=== PATIENT | male | born 1985 | race African-American/Black ===

== ENCOUNTER 2017-06-11 04:34 | Emergency (ER) | payer SELFPAY ==
[2017-06-11 04:41] VITALS: BP 145/97; PULSE 70; TEMP 98.5; BMI 56.9
--- NOTE | 2017-06-11 04:53 | PDOC ---
History of Present Illness - General Chief Complaint: Pain, Acute Stated Complaint: LEG PAIN Time Seen by Provider: 06/11/17 04:38 History Source: Patient Exam Limitations: No Limitations - History of Present Illness Initial Comments: 06/11/17 04:48 32-year-old male with no medical history presents to the emergency department complaining of 3/10 dull nonradiating intermittent left knee pain 1-1/2 years. The pain is exacerbated on touch and alleviated at rest. Patient states while sleeping this evening, he was laying on the left side with his knee in a awkward position. Patient denies extremity numbness or tingling sensation, fall , neck/back pains, bladder or bowel dysfunction. Patient states he's here in the emergency department with a cousin and decides she she gets seen as opposed to sitting in the waiting room. Patient states he's ambulating without any difficulties and can to deep knee bend without discomfort. Timing/Duration: other (x1.5 yrs) Past History - Past Medical History Allergies/Adverse Reactions: Allergies Allergy/AdvReac Type Severity Reaction Status Date / Time No Known Allergies Allergy Verified 06/11/17 04:38 Home Medications: Ambulatory Orders Cyclobenzaprine HCl [Flexeril] 5 mg PO TID #10 tablet 11/10/14 Naproxen [Naprosyn -] 500 mg PO BID #14 tablet 11/10/14 Asthma: Yes HTN: Yes - Suicide/Smoking/Psychosocial Hx Smoking History: Unknown if ever smoked Have you smoked in the past 12 months: No Number of Cigarettes Smoked Daily: 10 Information on smoking cessation initiated: No Hx Alcohol Use: No Drug/Substance Use Hx: No Substance Use Type: Alcohol Review of Systems - Review of Systems Able to Perform ROS?: Yes Comments:: 06/11/17 04:53 CONSTITUTIONAL: Absent: fever, chills, diaphoresis, generalized weakness, malaise, loss of appetite HEENT: Absent: rhinorrhea, nasal congestion, throat pain, throat swelling, difficulty swallowing, mouth swelling, ear pain, eye pain, visual Changes CARDIOVASCULAR: Absent: chest pain, loss of consciousness, palpitations, irregular heart rate, peripheral edema RESPIRATORY: Absent: cough, shortness of breath, dyspnea with exertion, orthopnea, wheezing, stridor, hemoptysis GASTROINTESTINAL: Absent: abdominal pain, abdominal distension, nausea, vomiting, diarrhea, constipation, melena, hematochezia GENITOURINARY: Absent: dysuria, frequency, urgency, hesitancy, hematuria, flank pain, genital pain MUSCULOSKELETAL: +left knee pain Absent: myalgia, arthralgia, joint swelling SKIN: Absent: rash, itching, pallor HEMATOLOGIC/IMMUNOLOGIC: Absent: easy bleeding, easy bruising, lymphadenopathy, frequent infections ENDOCRINE: Absent: unexplained weight gain, unexplained weight loss, heat intolerance, cold intolerance NEUROLOGIC: Absent: headache, focal weakness or paresthesias, dizziness, unsteady gait, seizure, mental status changes, bladder or bowel incontinence Is the patient limited Khmer proficient: No *Physical Exam - Vital Signs Last Vital Signs Temp Pulse Resp BP Pulse Ox 98.5 F 70 14 145/97 70 L 06/11/17 04:38 06/11/17 04:38 06/11/17 04:38 06/11/17 04:38 06/11/17 04:38 - Physical Exam Comments: 06/11/17 04:53 GENERAL: Well developed, well nourished. Awake and alert. No acute distress. HEENT: Normocephalic, atraumatic. PERRLA, EOMI. No conjunctival pallor. Sclera are non- icteric. Moist mucous membranes. Oropharynx is clear. NECK: Supple. Full ROM. No JVD. Carotid pulses 2+ and symmetric, without bruits. No thyromegaly. No lymphadenopathy. CARDIOVASCULAR: Regular rate and rhythm. No murmurs, rubs, or gallops. Distal pulses are 2+ and symmetric. PULMONARY: No evidence of respiratory distress. Lungs clear to auscultation bilaterally. No wheezing, rales or rhonchi. ABDOMINAL: Soft. Non-tender. Non-distended. No rebound or guarding. No organomegaly. Normoactive bowel sounds. MUSCULOSKELETAL Normal range of motion at all joints. No bony deformities or tenderness. No CVA tenderness. EXTREMITIES: No cyanosis. No clubbing. No edema. No calf tenderness. SKIN: Warm and dry. Normal capillary refill. No rashes. No jaundice. Left knee F.R.O.M. neg swelling Neg obv deformities +pain on palp Neg ant/posterior drawer Neg valrus/valgus Neg ant midline tenderness on palp \ Left hip F.R.O.M. Neg pain on palp Left ankle 2+dp pulse neg obv def neg pain on palp *DC/Admit/Observation/Transfer Diagnosis at time of Disposition: Chronic knee pain Qualifiers: Laterality: left Qualified Code(s): M25.562 - Pain in left knee - Discharge Dispostion Admit: No - Referrals Referrals: Abisai Echavarria MD [Staff Physician] - - Patient Instructions Printed Discharge Instructions: DI for Knee Pain Additional Instructions: Rest Tylenol alternating with motrin as needed for pain Return to the ER for sevree/persistent/worsening symptoms - Post Discharge Activity
--- NOTE | 2017-06-11 05:10 | PDOC ---
*Physical Exam - Vital Signs Last Vital Signs Temp Pulse Resp BP Pulse Ox 98.5 F 70 14 145/97 70 L 06/11/17 04:38 06/11/17 04:38 06/11/17 04:38 06/11/17 04:38 06/11/17 04:38 Medical Decision Making - Medical Decision Making 06/11/17 05:10 Pt seen by the Advanced Practice Provider under my direct supervision Ancillary studies reviewed I agree with plan as outlined by the Advanced Practice Provider ELIZABETH Maya *DC/Admit/Observation/Transfer Diagnosis at time of Disposition: Chronic knee pain Qualifiers: Laterality: left Qualified Code(s): M25.562 - Pain in left knee - Referrals Referrals: Abisai Echavarria MD [Staff Physician] - - Patient Instructions Printed Discharge Instructions: DI for Knee Pain Additional Instructions: Rest Tylenol alternating with motrin as needed for pain Return to the ER for sevree/persistent/worsening symptoms - Post Discharge Activity
== END 2017-06-11 05:39 | disposition home or self-care (01) ==
LOC: JER 04:34
DX: M25.562 Pain in left knee (principal); G89.29 Other chronic pain
CPT/HCPCS: 99282-25

== ENCOUNTER 2017-06-22 05:15 | Emergency (ER) | payer SELFPAY ==
[2017-06-22 05:24] VITALS: BP 140/83; PULSE 70; TEMP 98.3; BMI 30.1
[2017-06-22] MEDS ORDERED: IBUPROFEN 400 MG TABLET (FP) PO ONE ×2 (05:36→05:42)
[2017-06-22] MEDS ORDERED: RANITIDINE HCL 150 MG TABLET (FP) PO ONE (05:37)
[2017-06-22] MEDS ORDERED: RANITIDINE HCL 150 MG TABLET (FP) ONE (05:42)
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
== END 2017-06-22 07:19 | disposition home or self-care (01) ==
LOC: JER 05:15
DX: M79.605 Pain in left leg (principal); W01.0XXA Fall on same level from slipping, tripping and stumbling without subsequent striking against object, initial encounter; Y93.89 Activity, other specified; Y92.89 Other specified places as the place of occurrence of the external cause; Y99.8 Other external cause status
CPT/HCPCS: 73523-TC-FY; 73560-TC-LT-FY; 73590-TC-LT-FY; 99282-25

== ENCOUNTER 2018-02-12 17:25 | Emergency (ER) | payer OTHER ==
[2018-02-12 17:41] VITALS: BP 140/80; PULSE 74; TEMP 98.7; BMI 25.8
[2018-02-12] MEDS ORDERED: diazePAM 5 MG TABLET PO ONE (18:11)
[2018-02-12] MEDS ORDERED: KETOROLAC TROMETHAMINE 60 MG/2 ML VIAL IM ONE (18:11)
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
[2018-02-12] MEDS ORDERED: diazePAM 5 MG TABLET ONE (18:33)
[2018-02-12] MEDS ORDERED: KETOROLAC TROMETHAMINE 60 MG/2 ML VIAL ONE (18:33)
== END 2018-02-12 19:16 | disposition home or self-care (01) ==
LOC: JERFT 17:25
PROC: 3E0233Z Introduction of Anti-inflammatory into Muscle, Percutaneous Approach (ICD-10-PCS; principal; 2018-02-12)
DX: M54.42 Lumbago with sciatica, left side (principal); M62.830 Muscle spasm of back; M41.80 Other forms of scoliosis, site unspecified
CPT/HCPCS: 72100-TC-FY; 96372; 99281-25

== ENCOUNTER 2018-02-14 20:42 | Emergency (ER) | payer OTHER ==
--- NOTE | 2018-02-14 21:30 | PDOC ---
Rapid Medical Evaluation Time Seen by Provider: 02/14/18 21:29 Medical Evaluation: Allergies Allergy/AdvReac Type Severity Reaction Status Date / Time No Known Allergies Allergy Verified 02/12/18 17:41 02/14/18 21:30 The patient presents with a chief complaint of: back/leg pain I have performed a brief in-person evaluation of this patient. Pertinent physical exam findings: vss, I have ordered the following: provider to determine, seen here for same 2 days ago The patient will proceed to the ED for further evaluation. 02/14/18 21:32
[2018-02-14 21:35] VITALS: BP 137/78; PULSE 71; TEMP 98.7; BMI 28.4
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
== END 2018-02-14 22:56 | disposition home or self-care (01) ==
LOC: JERFT 20:42
DX: M54.16 Radiculopathy, lumbar region (principal); F17.210 Nicotine dependence, cigarettes, uncomplicated; I10 Essential (primary) hypertension; J45.909 Unspecified asthma, uncomplicated
CPT/HCPCS: 99281-25

== ENCOUNTER 2018-02-15 08:34 | Observation (INO) | payer OTHER ==
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
--- NOTE | 2018-02-15 14:22 | CON.NEURO ---
Consult Consult Specialty:: Dominique Referred by:: Dr Davila - History of Present Illness History of Present Illness: this is a 32-year-old right-handed -Honduran man with history of HIV according to him I saw him in the emergency room with chief complaint of difficulty walking and back pain. Patient has been in the emergency room for over 24 hours according to him. When I interviewed the patient in the emergency room he was on a wheelchair demanding food. Patient did not look distressed because of back pain patient claims when he stands he can walk patient claims that he was planning to go home but he couldn't stand on his feet as his feet felt weak. No report of any recent travel no fever patient describes back pain only upon standing. Patient denies any urinary incontinence. Patient claims that he try to go see an orthopedic surgeon. When interviewed the patient regarding the HIV history he says that he follows up with infectious disease specialist/HIV clinic in [place] on [facility]. Patient claims that the HIV is under control. - History Source History Provided By: Patient, Medical Record Limitations to Obtaining History: Clinical Condition - Alcohol/Substance Use Hx Alcohol Use: No - Smoking History Smoking history: Never smoked Have you smoked in the past 12 months: No Aproximately how many cigarettes per day: 3 Home Medications - Allergies Allergies/Adverse Reactions: Allergies Allergy/AdvReac Type Severity Reaction Status Date / Time No Known Allergies Allergy Verified 02/15/18 09:06 - Home Medications Home Medications: Ambulatory Orders NK [No Known Home Medication] 02/15/18 Family Disease History - Family Disease History Family History: Unable to Obtain Review of Systems - Review of Systems Musculoskeletal: reports: Back Pain, Joint Pain, Muscle Weakness Physical Exam-Neuro Vital Signs: Vital Signs Temperature 97.5 F L 02/15/18 09:04 Pulse Rate 61 02/15/18 09:04 Respiratory Rate 18 02/15/18 09:04 Blood Pressure 129/84 02/15/18 09:04 O2 Sat by Pulse Oximetry (%) 98 02/15/18 09:04 Constitutional: Yes: Well Nourished Neck: Yes: WNL Cardiovascular: Yes: WNL - Neuro Exam Level Of Consciousness: Yes: Oriented to Person, Oriented to Place, Oriented to Time Eyes: Yes: PERRLA Speech: WNL Dominant Hand: Right Cranial Nerves II-XII Intact: Yes Gag: Present DTR's: 1+ Left Bicep, 1+ Right Bicep, 1+ Left Brachioradialis, 1+ Right Brachioradialis Response to light touch: Normal Response to pain prick: Normal Response to temperature: Normal Motor Strength: 35: Left Arm, Right Arm, Left Leg, Right Leg Gait: Other (I was able to stand the patient up patient was able to get up from a seated position patient was very hesitant to walk) Imaging - Results X-ray: Image Reviewed Problem List - Problems (1) Low back pain Assessment/Plan: initially when I started interviewing the patient seeing the patient for the back pain patient was comfortable and I was planning to discharge the patient until he told me that he has a history of HIV! We do not have any documentation or paperwork regarding this diagnosis for the patient. Patient with no clinical diagnosis of demyelinating disease although HIV can present with a very awkward presentation I asked the emergency room physician Dr. Davila to obtain a CAT scan of the lumbosacral spine. 1. fall precautions. 2. One trial of 30 mg Toradol. 3. CAT scan of the lumbosacral spine rule out a plexus lesion versus lumbar radiculopathy. 4. Suggest physical therapy to evaluate the patient and emergency room. 5. Questionable need for NCV Case was discussed with the emergency room physician Dr. Onofre thank you very much for the kind referral Code(s): M54.5 - LOW BACK PAIN
[2018-02-15] MEDS ORDERED: KETOROLAC TROMETHAMINE 30 MG/1 ML VIAL IM ONE (14:49)
[2018-02-15] MEDS ORDERED: KETOROLAC TROMETHAMINE 30 MG/1 ML VIAL ONE (15:32)
--- NOTE | 2018-02-15 17:13 | CONSULT ---
Consult - text type - Consultation Consultation Note: NEUROSURGERY CONSULTATION Fuentes Coughlin is a 32 year old male who has been healthy other than HIV which he is diligent in managing. 3 months ago, his family and friends noted that he would tend to lean to one side. Although he did not initially appreciate this, it continued and progressed over 1 month. He was exercising regularly, including lifting weights and developed back pain. He saw himself in the mirror at the gym and realized that he was leaning to the side. He has had 2 -3 cortisone injections for his back pain, but has not had MARTHA or formal Physical Therapy. He recently noted significant increase in his back pain and difficulty walking upright. He felt that he needed to walk bent over "like an old man." He came to the ER at [facility] and plain films of the Lumbar spine were generally unremarkable except for slight leaning on AP imaging. The patient was discharged with plans for outpatient followup, however , could not stand straight to walk out and decided to return for further evaluation. The patient has been in the ER overnight and today CT was performed which suggests L34 disc bulging with Lumbar stenosis from hypertrophic ligamentum flavum and facets. It is difficult to window the images adequately to determine the extent of the stenosis or size of the disc (which has a partially calcified annulus). The patient has significant increase in his pain with Valsalva's maneuver and gets substantial aggravation from vibration and jostling. I explained that appropriate treatment could range from observation, Physical Therapy, MARTHA, Medrol dosepack, Lumbar discectomy and possibly Lumbar discectomy and fusion. I explained that given his young age and relatively short duration of symptoms, it would be preferred to strive for a non-invasive treatment plan. I feel that MRI would be useful in his evaluation. The patient agrees with this assessment and is willing to undergo MRI. I will review the MRI once completed and will coordinate with Dr. Fox and the ER team to develop a plan of care.
[2018-02-16 00:35] LABS: BASO % 0.5 % (0-2.0); EOS % 1.5 % (0-4.5); HEMATOCRIT 41.1 % (35.4-49); HEMOGLOBIN 13.9 GM/dL (11.7-16.9); LYMPH % 30.3 % (8-40); MCH 31.8 pg (25.7-33.7); MCHC 33.7 g/dl (32.0-35.9); MEAN CELL VOLUME 94.4 fl (80-96); MEAN PLT VOLUME 9.6 fl (7.5-11.1); MONO % 10.9 % (3.8-10.2); NEUT % 56.8 % (42.8-82.8); PLATELET COUNT 133 K/MM3 (134-434); RBC 4.36 M/mm3 (4.00-5.60); RDW 13.2 % (11.9-15.9); WHITE BLOOD COUNT 5.3 K/mm3 (4.0-10.0)
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
[2018-02-16 01:00] LABS: ALBUMIN 3.8 g/dl (3.4-5.0); ALK PHOS 69 U/L (45-117); ANION GAP 6 MMOL/L (8-16); BILIRUBIN,TOTAL 0.3 mg/dL (0.2-1); BLOOD UREA NITROGEN 20 mg/dL (7-18); CALCIUM 9.2 mg/dL (8.5-10.1); CHLORIDE 106 mmol/L (98-107); CO2 28 mmol/L (21-32); CREATININE 1.1 mg/dL (0.55-1.3); GLUCOSE,RANDOM 90 mg/dL (74-106); POTASSIUM 4.2 mmol/L (3.5-5.1); SGOT/AST 15 U/L (15-37); SGPT/ALT 23 U/L (13-61); SODIUM 139 mmol/L (136-145); TOT PROT 7.3 g/dl (6.4-8.2)
--- NOTE | 2018-02-16 01:10 | PN ---
Teaching Attending Note Name of Resident: Donn Bell ATTENDING PHYSICIAN STATEMENT I saw and evaluated the patient. I reviewed the resident's note and discussed the case with the resident. I agree with the resident's findings and plan as documented. SUBJECTIVE: This is a 32 year old man with a history of HIV who comes to the ED complaining of low back pain radiating down both legs. He has been unable to walk secondary to pain and has been falling. He has noted that he has been leaning to the right. He denies incontinence of bladder/bowel. He has been having symptoms for about 1 year, but has been worsening over the last 4 days. This is his 3rd ED visit in 4 days. OBJECTIVE: Vital Signs Period Temp Pulse Resp BP Sys/Zamora Pulse Ox Last 24 Hr 97.5 F-97.8 F 61-63 18-18 115-129/74-84 98-100 HEART: S1S2, RRR LUNGS: Clear ABDOMEN: Soft, non-tender, non-distended, normal BS EXTREMITIES: No edema Laboratory Tests 02/16/18 02/16/18 00:10 00:10 WBC 5.3 RBC 4.36 Hgb 13.9 Hct 41.1 MCV 94.4 MCH 31.8 MCHC 33.7 RDW 13.2 Plt Count 133 L MPV 9.6 Absolute Neuts (auto) 3.0 Neutrophils % 56.8 Lymphocytes % 30.3 Monocytes % 10.9 H Eosinophils % 1.5 Basophils % 0.5 Nucleated RBC % 0 Sodium 139 Potassium 4.2 Chloride 106 Carbon Dioxide 28 Anion Gap 6 L BUN 20 H Creatinine 1.1 Creat Clearance w eGFR > 60 Random Glucose 90 Calcium 9.2 Total Bilirubin 0.3 AST 15 ALT 23 Alkaline Phosphatase 69 Total Protein 7.3 Albumin 3.8 Home Medications Medication Instructions Recorded NK [No Known Home Medication] 02/15/18 ASSESSMENT AND PLAN: This is a 32 year old man with a history of HIV who presented to the ED with low back pain radiating down both legs. 1. Low back pain radiating down both legs with difficulty ambulating - CT of pelvis shows right femoral head osteonecrosis - No history of trauma, steroid use, alcohol use, sickle cell disease - ? secondary to HIV - Ortho consult - CT of L-spine shows marked central canal stenosis and moderte to marked bilateral subarticular canal/lateral recess stenosis at L3-L4 - Neurology, neurosurgery consults appreciated - MRI of L-spine pending - Physical therapy - Pain control - Further management based on MRI findings 2. HIV - Patient states that he is compliant with ART
[2018-02-16] MEDS: HEPARIN NA (PORCINE) 5,000 UNITS/ML 1ML VIAL SQ SCH ×4 (06:14→21:00)
[2018-02-16] MEDS ORDERED: HEPARIN NA (PORCINE) 5,000 UNITS/ML 1ML VIAL ONE (06:29)
[2018-02-16 07:12] LABS: BASO % 0.6 % (0-2.0); EOS % 1.7 % (0-4.5); HEMATOCRIT 40.6 % (35.4-49); HEMOGLOBIN 13.6 GM/dL (11.7-16.9); LYMPH % 34.2 % (8-40); MCH 31.3 pg (25.7-33.7); MCHC 33.5 g/dl (32.0-35.9); MEAN CELL VOLUME 93.4 fl (80-96); MEAN PLT VOLUME 9.8 fl (7.5-11.1); MONO % 13.5 % (3.8-10.2); PLATELET COUNT 125 K/MM3 (134-434); RBC 4.35 M/mm3 (4.00-5.60); WHITE BLOOD COUNT 4.2 K/mm3 (4.0-10.0)
[2018-02-16 07:41] LABS: INR 1.03 (0.83-1.09); PROTHROMBIN TIME (PATIENT) 12.1 SEC (9.7-13.0)
[2018-02-16 08:16] LABS: ANION GAP 6 MMOL/L (8-16); BLOOD UREA NITROGEN 17 mg/dL (7-18); CALCIUM 8.8 mg/dL (8.5-10.1); CHLORIDE 107 mmol/L (98-107); CO2 27 mmol/L (21-32); GLUCOSE,RANDOM 90 mg/dL (74-106); MAGNESIUM 2.2 mg/dL (1.8-2.4); PHOSPHOROUS 4.8 mg/dL (2.5-4.9); SODIUM 140 mmol/L (136-145)
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
--- NOTE | 2018-02-16 12:12 | PN ---
Progress Note (short form) - Note Progress Note: Patient resting comfortably in bed. When awakened, he reports adequate pain control. Discussed MRI findings and role of surgery (L34 discectomy versus discectomy & fusion) if MARTHA is not able to relieve his pain. -MARTHA -Will consider potential for surgery if MARTHA fails -GI/DVT prophylaxis
--- NOTE | 2018-02-16 14:28 | SPA.PREOP ---
- PRE-OP NOTE Dx: L34 disc herniation with Lumbar stenosis Planned Procedure: L34 discectomy versus discectomy & fusion Surgeon: Dr Naveen Rose Consent: Obtained after surgeon explained all risks, benefits and alternatives. Opportunity for questions. Patient had none. Understood and signed without reservation. Last Vital Signs Temp Pulse Resp BP Pulse Ox 98.0 F 64 18 102/61 99 02/16/18 08:45 02/16/18 08:45 02/16/18 08:45 02/16/18 08:45 02/16/18 09:45 Lab Results WBC 4.2 K/mm3 (4.0-10.0) 02/16/18 06:00 RBC 4.35 M/mm3 (4.00-5.60) 02/16/18 06:00 Hgb 13.6 GM/dL (11.7-16.9) 02/16/18 06:00 Hct 40.6 % (35.4-49) 02/16/18 06:00 MCV 93.4 fl (80-96) 02/16/18 06:00 MCHC 33.5 g/dl (32.0-35.9) 02/16/18 06:00 RDW 13.0 % (11.9-15.9) 02/16/18 06:00 Plt Count 125 K/MM3 (134-434) L 02/16/18 06:00 Sodium 140 mmol/L (136-145) 02/16/18 06:00 Potassium 4.0 mmol/L (3.5-5.1) 02/16/18 06:00 Chloride 107 mmol/L (98-107) 02/16/18 06:00 Carbon Dioxide 27 mmol/L (21-32) 02/16/18 06:00 Anion Gap 6 MMOL/L (8-16) L 02/16/18 06:00 BUN 17 mg/dL (7-18) 02/16/18 06:00 Creatinine 1.0 mg/dL (0.55-1.3) 02/16/18 06:00 Random Glucose 90 mg/dL (74-106) 02/16/18 06:00 Calcium 8.8 mg/dL (8.5-10.1) 02/16/18 06:00 INR 1.03 (0.83-1.09) 02/16/18 06:00 P: Possible OR 02/[address] Rose weiss tonight Medical clearance NPO after midnight CBC, chem, coags, t&s tonight Consent per attending - ASSESSMENT/PLAN 1. Make NPO after midnight except po meds 2. GI/DVT PPX 3. Medical optimization / clearance
--- NOTE | 2018-02-16 15:35 | PN ---
Physical Exam: SUBJECTIVE: Patient seen and examined at bedside this morning. He admits pain originating from left sided-lumbar spine radiating interiorly along his left leg. He admits walking stooped forward with a hunch, and that pain is exacerbated standing upright. Endorses that he has been walking with a cane due to pain. Denies fevers, chills, shortness of breath, chest pain, palpitations, abdominal pain, nausea, vomiting. OBJECTIVE: Vital Signs Temperature 98.0 F 02/16/18 08:45 Pulse Rate 64 02/16/18 08:45 Respiratory Rate 18 02/16/18 08:45 Blood Pressure 102/61 02/16/18 08:45 O2 Sat by Pulse Oximetry (%) 99 02/16/18 09:45 GENERAL: The patient is awake, alert, and fully oriented, in no acute distress. HEAD: Normal with no signs of trauma. EYES: PERRLA, extraocular movements intact, sclera anicteric, conjunctiva clear b/l. ENT: Oropharynx clear without exudates, moist mucous membranes. NECK: Supple without lymphadenopathy LUNGS: Breath sounds equal, clear to auscultation bilaterally, no wheezes, no crackles. No accessory muscle use. HEART: Regular rate and rhythm, S1, S2 without murmur, rub or gallop. ABDOMEN: Soft, nontender, nondistended, normoactive bowel sounds, no guarding, no rebound, no hepatosplenomegaly. EXTREMITIES: 2+ radial and dorsalis pedis pulses b/l. Warm. NEUROLOGICAL: Cranial nerves II through XII grossly intact. Strength 4/5 b/l lower extremities in hip flexion, extension, knee flexion, extension, and dorsiflexion, plantarflexion. Strength 5/5 b/l upper extremities in flexion, extension, abduction, adduction. PSYCH: Normal mood, normal affect upon my encounter this morning. SKIN: Warm, dry. Laboratory Results - last 24 hr 02/16/18 02/16/18 02/16/18 00:10 00:10 06:00 WBC 5.3 4.2 RBC 4.36 4.35 Hgb 13.9 13.6 Hct 41.1 40.6 MCV 94.4 93.4 MCH 31.8 31.3 MCHC 33.7 33.5 RDW 13.2 13.0 Plt Count 133 L 125 L MPV 9.6 9.8 Absolute Neuts (auto) 3.0 2.1 Neutrophils % 56.8 50.0 Lymphocytes % 30.3 34.2 Monocytes % 10.9 H 13.5 H Eosinophils % 1.5 1.7 Basophils % 0.5 0.6 Nucleated RBC % 0 0 PT with INR INR PTT (Actin FS) Sodium 139 Potassium 4.2 Chloride 106 Carbon Dioxide 28 Anion Gap 6 L BUN 20 H Creatinine 1.1 Creat Clearance w eGFR > 60 Random Glucose 90 Calcium 9.2 Phosphorus Magnesium Total Bilirubin 0.3 AST 15 ALT 23 Alkaline Phosphatase 69 Total Protein 7.3 Albumin 3.8 Active Medications Generic Name Dose Route Start Last Admin Trade Name Freq PRN Reason Stop Dose Admin Chlorhexidine Gluconate 1 applic 02/16/18 22:00 Hibiclens For Decolonization - TP HS ALEJANDRO Heparin Sodium (Porcine) 5,000 unit 02/16/18 06:00 02/16/18 06:14 Heparin - SQ 5,000 unit TID ALEJANDRO Administration ASSESSMENT/PLAN: Patient is a 32 year old male with history of scoliosis and HIV presents with lower back pain. Lumbar back pain -Likely secondary to L3-L4 bulging disk, and spinal stenosis noted in CT lumbar spine. Denies history of trauma. -MRI lumbar spine shows L3-L4 disc desiccation. Remodelling with sclerosis of L3 vertebral body. Likely chronic apophyseal ring avulsion injury, disc herniation. -Neurosurgery (Dr. Morrison) consult appreciated: Will attempt palliation of symptoms with Epidural Spinal Injection Will consider potential L34 discectomy vs. discectomy and fusion if MARTHA does not alleviate his symptoms F/U pain management consult Dr. Chilel for MARTHA Right femoral head osteonecrosis -CT of pelvis noted osteonecrosis right femoral head -Orthopedic surgery consult (Dr. Alejandra) appreciated: Likely early stage avascular necrosis. Will F/U xray right hip Patient will follow up as outpatient for further studies HIV -Patient admits compliance with Genvoya at home, however unavailable at this hospital. -Discussed with patient who is unable have family member or friend to bring the medication from home. -ID is on the case. HIV medications per ID. FEN -No IV fluids -Will follow CMP -Regular diet. NPO after midnight for possible procedure with Dr. Morrison tomorrow. Prophylaxis -Heparin 5000u subq TID Disposition -Continue care in medical surgical floor. Visit type - Emergency Visit Emergency Visit: Yes ED Registration Date: 02/15/18 Care time: The patient presented to the Emergency Department on the above date and was hospitalized for further evaluation of their emergent condition. - New Patient This patient is new to me today: Yes Date on this admission: 02/16/18 - Critical Care Critical Care patient: No - Discharge Referral Referred to [facility] Med P.C.: No
[2018-02-16] MEDS ORDERED: ACETAMINOPHEN 325 MG TABLET (FP) PO PRN (16:33)
[2018-02-16 19:52] VITALS: TEMP 98.4; BMI 28.5
--- NOTE | 2018-02-16 21:19 | PN ---
Teaching Attending Note Name of Resident: Vamsi Perkins ATTENDING PHYSICIAN STATEMENT I saw and evaluated the patient. I reviewed the resident's note and discussed the case with the resident. I agree with the resident's findings and plan as documented. SUBJECTIVE: Patient is comfortable with no acute distress. OBJECTIVE: Vital Signs Temperature 98.4 F 02/16/18 19:43 Pulse Rate 80 02/16/18 19:43 Respiratory Rate 20 02/16/18 20:01 Blood Pressure 135/74 02/16/18 19:43 O2 Sat by Pulse Oximetry (%) 98 02/16/18 20:01 GENERAL: The patient is awake, alert, and fully oriented, in no acute distress. HEAD: Normal with no signs of trauma. EYES: PERRLA, extraocular movements intact, sclera anicteric, conjunctiva clear b/l. ENT: Oropharynx clear without exudates, moist mucous membranes. NECK: Supple without lymphadenopathy LUNGS: Breath sounds equal, clear to auscultation bilaterally, no wheezes, no crackles. No accessory muscle use. HEART: Regular rate and rhythm, S1, S2 without murmur, rub or gallop. ABDOMEN: Soft, nontender, nondistended, normoactive bowel sounds, no guarding, no rebound, no hepatosplenomegaly. EXTREMITIES: 2+ radial and dorsalis pedis pulses b/l. Warm. NEUROLOGICAL: Cranial nerves II through XII grossly intact. SKIN: Warm, dry. CBCD WBC 4.2 K/mm3 (4.0-10.0) 02/16/18 06:00 RBC 4.35 M/mm3 (4.00-5.60) 02/16/18 06:00 Hgb 13.6 GM/dL (11.7-16.9) 02/16/18 06:00 Hct 40.6 % (35.4-49) 02/16/18 06:00 MCV 93.4 fl (80-96) 02/16/18 06:00 MCHC 33.5 g/dl (32.0-35.9) 02/16/18 06:00 RDW 13.0 % (11.9-15.9) 02/16/18 06:00 Plt Count 125 K/MM3 (134-434) L 02/16/18 06:00 MPV 9.8 fl (7.5-11.1) 02/16/18 06:00 CMP Sodium 140 mmol/L (136-145) 02/16/18 06:00 Potassium 4.0 mmol/L (3.5-5.1) 02/16/18 06:00 Chloride 107 mmol/L (98-107) 02/16/18 06:00 Carbon Dioxide 27 mmol/L (21-32) 02/16/18 06:00 Anion Gap 6 MMOL/L (8-16) L 02/16/18 06:00 BUN 17 mg/dL (7-18) 02/16/18 06:00 Creatinine 1.0 mg/dL (0.55-1.3) 02/16/18 06:00 Creat Clearance w eGFR > 60 (>60) 02/16/18 06:00 Random Glucose 90 mg/dL (74-106) 02/16/18 06:00 Calcium 8.8 mg/dL (8.5-10.1) 02/16/18 06:00 Total Bilirubin 0.3 mg/dL (0.2-1) 02/16/18 00:10 AST 15 U/L (15-37) 02/16/18 00:10 ALT 23 U/L (13-61) 02/16/18 00:10 Alkaline Phosphatase 69 U/L (45-117) 02/16/18 00:10 Total Protein 7.3 g/dl (6.4-8.2) 02/16/18 00:10 Albumin 3.8 g/dl (3.4-5.0) 02/16/18 00:10 Current Medications Generic Name Dose Route Start Last Admin Trade Name Ck PRN Reason Stop Dose Admin Acetaminophen 650 mg 02/16/18 16:33 02/16/18 20:57 Tylenol - PO 650 mg Q6H PRN Administration Fever Or Pain Chlorhexidine Gluconate 1 applic 02/16/18 22:00 Hibiclens For Decolonization - TP HS ALEJANDRO Heparin Sodium (Porcine) 5,000 unit 02/16/18 06:00 02/16/18 21:00 Heparin - SQ 5,000 unit TID ALEJANDRO Administration Home Medications Medication Instructions Recorded NK [No Known Home Medication] 02/15/18 ASSESSMENT AND PLAN: Patient is a 32 year old male with history of scoliosis and HIV presents with lower back pain. # Lumbar back pain Likely secondary to L3-L4 bulging disk, and spinal stenosis noted in CT lumbar spine. # Right femoral head osteonecrosis: CT of pelvis noted osteonecrosis right femoral head, Orthopedic surgery consult (Dr. Alejadnra) # HIV. ID on the case. DVT Px: Heparin 5000u subq TID
[2018-02-16] MEDS ORDERED: CHLORHEXIDINE GLUCONATE 4% CLEANSER FOR DECOLONIZATION TP SCH (22:00)
[2018-02-17] MEDS: HEPARIN NA (PORCINE) 5,000 UNITS/ML 1ML VIAL SQ SCH (05:58)
[2018-02-17 07:09] LABS: HEMATOCRIT 40.7 % (35.4-49); HEMOGLOBIN 13.9 GM/dL (11.7-16.9); MCH 31.8 pg (25.7-33.7); MCHC 34.1 g/dl (32.0-35.9); MEAN CELL VOLUME 93.4 fl (80-96); MEAN PLT VOLUME 10.3 fl (7.5-11.1); PLATELET COUNT 119 K/MM3 (134-434); RBC 4.36 M/mm3 (4.00-5.60); RDW 12.9 % (11.9-15.9)
[2018-02-17 07:43] LABS: ALBUMIN 3.5 g/dl (3.4-5.0); ALK PHOS 73 U/L (45-117); ANION GAP 5 MMOL/L (8-16); BILIRUBIN,TOTAL 0.2 mg/dL (0.2-1); BLOOD UREA NITROGEN 17 mg/dL (7-18); CALCIUM 9.2 mg/dL (8.5-10.1); CHLORIDE 107 mmol/L (98-107); CO2 28 mmol/L (21-32); GLUCOSE,RANDOM 108 mg/dL (74-106); PHOSPHOROUS 4.9 mg/dL (2.5-4.9); POTASSIUM 3.9 mmol/L (3.5-5.1); SGOT/AST 18 U/L (15-37); SGPT/ALT 26 U/L (13-61); SODIUM 140 mmol/L (136-145); TOT PROT 6.9 g/dl (6.4-8.2)
[2018-02-17 07:57] LABS: INR 1.05 (0.83-1.09); PROTHROMBIN TIME (PATIENT) 12.4 SEC (9.7-13.0)
[2018-02-17 07:59] LABS: ACTIVATED PTT 28.1 SECONDS (25.2-36.5)
--- NOTE | 2018-02-17 08:31 | PN ---
Progress Note (short form) - Note Progress Note: patient refused ID consult- please call back if needed
--- NOTE | 2018-02-17 10:22 | DS ---
Physical Exam: SUBJECTIVE: Patient seen and examined at bedside this morning. No overnight events. He still endorses pain originating from left sided-lumbar spine radiating interiorly along his left leg. OBJECTIVE: Vital Signs Period Temp Pulse Resp BP Sys/Zamora Pulse Ox Last 24 Hr 98.0 F-98.4 F 80-83 18-20 135-135/74-91 98-98 PHYSICAL EXAM GENERAL: The patient is awake, alert, and fully oriented, in no acute distress. HEAD: Normal with no signs of trauma. EYES: PERRLA, extraocular movements intact, sclera anicteric, conjunctiva clear b/l. ENT: Oropharynx clear without exudates, moist mucous membranes. NECK: Supple without lymphadenopathy LUNGS: Breath sounds equal, clear to auscultation bilaterally, no wheezes, no crackles. No accessory muscle use. HEART: Regular rate and rhythm, S1, S2 without murmur, rub or gallop. ABDOMEN: Soft, nontender, nondistended, normoactive bowel sounds, no guarding, no rebound, no hepatosplenomegaly. EXTREMITIES: 2+ radial and dorsalis pedis pulses b/l. Warm. NEUROLOGICAL: Cranial nerves II through XII grossly intact. Strength 4/5 b/l lower extremities in hip flexion, extension, knee flexion, extension, and dorsiflexion, plantarflexion. Strength 5/5 b/l upper extremities in flexion, extension, abduction, adduction. PSYCH: Normal mood, normal affect upon my encounter this morning. SKIN: Warm, dry. LABS Laboratory Results - last 24 hr 02/17/18 02/17/18 02/17/18 06:23 06:23 06:23 WBC 5.0 RBC 4.36 Hgb 13.9 Hct 40.7 MCV 93.4 MCH 31.8 MCHC 34.1 RDW 12.9 Plt Count 119 L MPV 10.3 PT with INR 12.40 INR 1.05 PTT (Actin FS) 28.1 Sodium 140 Potassium 3.9 Chloride 107 Carbon Dioxide 28 Anion Gap 5 L BUN 17 Creatinine 1.0 Creat Clearance w eGFR > 60 Random Glucose 108 H Calcium 9.2 Phosphorus 4.9 Magnesium 2.0 Total Bilirubin 0.2 AST 18 ALT 26 Alkaline Phosphatase 73 Total Protein 6.9 Albumin 3.5 Blood Type Antibody Screen 02/17/18 06:23 WBC RBC Hgb Hct MCV MCH MCHC RDW Plt Count MPV PT with INR INR PTT (Actin FS) Sodium Potassium Chloride Carbon Dioxide Anion Gap BUN Creatinine Creat Clearance w eGFR Random Glucose Calcium Phosphorus Magnesium Total Bilirubin AST ALT Alkaline Phosphatase Total Protein Albumin Blood Type B POSITIVE Antibody Screen Negative HOSPITAL COURSE: Date of Admission:02/15/18 Date of Discharge: 02/17/18 Patient is a 32 year old male with history of scoliosis and HIV presents with lower back pain. Likely secondary to L3-L4 bulging disk, and spinal stenosis noted in CT lumbar spine. Neurosurgery evaluated patient and recommended epidural spinal injection before any procedure. Discussed with pain management who advised patient could follow up in his clinic later the same day. CT of pelvis noted osteonecrosis right femoral head. Orthopedic surgery requested radiographs or hip, and recommended outpatient follow up. Patient did not wish to be seen by ID to manage his HIV medication therapy. Discussed with patient to follow up with pain management later the same day for MARTHA, and to follow up with neurosurgeon after the MARTHA to follow up. Discussed with patient who understood plan, and was in agreement. Discussed with referral to pain management, neurosurgery, and orthopedic surgery. Minutes to complete discharge: 35 Discharge Summary Reason For Visit: LOW BACK PAIN Current Active Problems Low back pain (Acute) Condition: Stable - Instructions Diet, Activity, Other Instructions: You were admitted for lower back pain. The neurosurgeon evaluated you and you will first have an Epidural Spinal Injection. You will go to Dr. Butler office today (call office at [phone]) to begin the necessary paperwork. After this, you will call Dr. Morrison office on Tuesday February 20, 2018 ) to discuss further with him any other future procedures. Further, your CAT scan showed Avascular necrosis of your hip , who needs follow up with an orthopedic surgeon of your right hip, provided you the orthopedic surgeon Dr. Alejandra as an outpatient, 1-2 weeks after discharge. Finally, follow up with your primary care physician within one week of discharge. Continue taking your home medications as directed. Please return to the nearest Emergency Department if you experience any fevers, chills, chest pain, palpitations, vomiting, diarrhea, weakness in your lower extremities, bowel or bladder incontinence, or worsening symptoms. Referrals: Naveen Morrison MD, FAANS [Staff Physician] - 2 Weeks Miller Butler MD [Staff Physician] - 02/17/18 Brayan Alejandra DO [Staff Physician] - 2 Weeks Disposition: HOME - Home Medications Comprehensive Discharge Medication List: Ambulatory Orders Elviteg/Cob/Emtri/Tenof Alafen [Genvoya (Non-Formulary)] 02/17/18 This patient is new to me today: No Emergency Visit: Yes ED Registration Date: 02/15/18 Care time: The patient presented to the Emergency Department on the above date and was hospitalized for further evaluation of their emergent condition. Critical Care patient: No - Discharge Referral Referred to [facility] Med P.C.: No
[2018-02-17 11:39] VITALS: BP 128/80; PULSE 66
--- NOTE | 2018-02-17 15:38 | PN ---
Teaching Attending Note Name of Resident: Vamsi Perkins ATTENDING PHYSICIAN STATEMENT I saw and evaluated the patient. I reviewed the resident's note and discussed the case with the resident. I agree with the resident's findings and plan as documented. SUBJECTIVE: Patient is comfortable with no acute distress. OBJECTIVE: Vital Signs Temperature 98.4 F 02/16/18 19:43 Pulse Rate 66 02/17/18 10:00 Respiratory Rate 20 02/17/18 10:00 Blood Pressure 128/80 02/17/18 10:00 O2 Sat by Pulse Oximetry (%) 98 02/17/18 02:00 GENERAL: The patient is awake, alert, and fully oriented, in no acute distress. HEAD: Normal with no signs of trauma. EYES: PERRLA, extraocular movements intact, sclera anicteric, conjunctiva clear b/l. ENT: Oropharynx clear without exudates, moist mucous membranes. NECK: Supple without lymphadenopathy LUNGS: Breath sounds equal, clear to auscultation bilaterally, no wheezes, no crackles. No accessory muscle use. HEART: Regular rate and rhythm, S1, S2 without murmur, rub or gallop. ABDOMEN: Soft, nontender, nondistended, normoactive bowel sounds, no guarding, no rebound, no hepatosplenomegaly. EXTREMITIES: 2+ radial and dorsalis pedis pulses b/l. Warm. NEUROLOGICAL: Cranial nerves II through XII grossly intact. SKIN: Warm, dry. CBCD WBC 5.0 K/mm3 (4.0-10.0) 02/17/18 06:23 RBC 4.36 M/mm3 (4.00-5.60) 02/17/18 06:23 Hgb 13.9 GM/dL (11.7-16.9) 02/17/18 06:23 Hct 40.7 % (35.4-49) 02/17/18 06:23 MCV 93.4 fl (80-96) 02/17/18 06:23 MCHC 34.1 g/dl (32.0-35.9) 02/17/18 06:23 RDW 12.9 % (11.9-15.9) 02/17/18 06:23 Plt Count 119 K/MM3 (134-434) L 02/17/18 06:23 MPV 10.3 fl (7.5-11.1) 02/17/18 06:23 CMP Sodium 140 mmol/L (136-145) 02/17/18 06:23 Potassium 3.9 mmol/L (3.5-5.1) 02/17/18 06:23 Chloride 107 mmol/L (98-107) 02/17/18 06:23 Carbon Dioxide 28 mmol/L (21-32) 02/17/18 06:23 Anion Gap 5 MMOL/L (8-16) L 02/17/18 06:23 BUN 17 mg/dL (7-18) 02/17/18 06:23 Creatinine 1.0 mg/dL (0.55-1.3) 02/17/18 06:23 Creat Clearance w eGFR > 60 (>60) 02/17/18 06:23 Random Glucose 108 mg/dL (74-106) H 02/17/18 06:23 Calcium 9.2 mg/dL (8.5-10.1) 02/17/18 06:23 Total Bilirubin 0.2 mg/dL (0.2-1) 02/17/18 06:23 AST 18 U/L (15-37) 02/17/18 06:23 ALT 26 U/L (13-61) 02/17/18 06:23 Alkaline Phosphatase 73 U/L (45-117) 02/17/18 06:23 Total Protein 6.9 g/dl (6.4-8.2) 02/17/18 06:23 Albumin 3.5 g/dl (3.4-5.0) 02/17/18 06:23 Home Medications Medication Instructions Recorded Elviteg/Cob/Emtri/Tenof Alafen 02/17/18 [Genvoya (Non-Formulary)] ASSESSMENT AND PLAN: Patient is a 32 year old male with history of scoliosis and HIV presents with lower back pain. # Lumbar back pain Likely secondary to L3-L4 bulging disk, and spinal stenosis noted in CT lumbar spine. per neurosurgery patient needs to have epidural 1st , and follow up with him as an outpatient. # Right femoral head osteonecrosis: CT of pelvis noted osteonecrosis right femoral head, Orthopedic surgery consult (Dr. Alejandra) seen the patient and follow within 2 weeks as an outpatient # HIV. ID on the case.follow up with ID will discharge the patient home with follow visit to Back surgeon and pain managment as an OUT patient.
== END 2018-02-17 12:29 | disposition home or self-care (01) ==
LOC: JER 08:34 → JERFT 08:34 → JERBED 22:37 → J6S 02-16 19:39
PROVIDERS: ADMIT Internal Medicine; ATTEND Internal Medicine
PROC: 3E013GC Introduction of Other Therapeutic Substance into Subcutaneous Tissue, Percutaneous Approach (ICD-10-PCS; principal; 2018-02-15)
DX: M87.851 Other osteonecrosis, right femur (principal); M48.061 Spinal stenosis, lumbar region without neurogenic claudication; M51.26 Other intervertebral disc displacement, lumbar region; Z21 Asymptomatic human immunodeficiency virus [HIV] infection status; M54.5 Low back pain
CPT/HCPCS: 36415; 72131-TC; 72148-TC; 72192-TC; 73523-TC-FY; 80048; 80053; 83735; 84100; 85025; 85027; 85610; 85730; 86850; 86900; 86901; 96372; 99285-25; G0378; J1644

== ENCOUNTER 2018-02-18 07:24 | Emergency (ER) | payer OTHER ==
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
[2018-02-18 07:52] VITALS: TEMP 98; BMI 28.4
[2018-02-18] MEDS ORDERED: KETOROLAC TROMETHAMINE 30 MG/1 ML VIAL IVPUSH ONE (07:54)
[2018-02-18] MEDS ORDERED: LORazepam 2 MG/ML SDV VIAL ONE (08:11)
[2018-02-18] MEDS ORDERED: KETOROLAC TROMETHAMINE 30 MG/1 ML VIAL ONE (08:12)
--- NOTE | 2018-02-18 08:27 | PDOC ---
Attending Attestation - Resident Resident Name: TraciGissell - ED Attending Attestation I have performed the following: I have examined & evaluated the patient, The case was reviewed & discussed with the resident, I agree w/resident's findings & plan, Exceptions are as noted - HPI HPI: 02/18/18 08:25 32-year-old male with history of HIV well-controlled presents with back pain. The patient recently was admitted and discharged yesterday. He was initially admitted for lower back pain. February 15 demonstrates L3-L4 likely extruded disc. The patient was initially scheduled to go to surgery but was instead attempted to have outpatient epidural injection. However, patient reports that the insurance would not initially cover his epidural injection and may not until next week. He reports constant pain shooting down his legs worse with extension of his back. Denies numbness or weakness. Reports difficulty ambulating secondary to pain. - Physicial Exam PE: 02/18/18 08:25 GENERAL: Awake, alert, and fully oriented, +uncomfortable appearing HEAD: No signs of trauma EYES:EOMI, sclera anicteric, conjunctiva clear ENT: Auricles normal inspection, hearing grossly normal, nares patent, Moist mucosa NECK: Normal ROM, supple BACK: mild TTP ~L4-L5, no stepoff EXTREMITIES: Normal range of motion, no edema. No clubbing or cyanosis. No cords, erythema, or tenderness NEUROLOGICAL: Cranial nerves II through XII grossly intact. Normal speech SKIN: Warm, Dry, normal turgor, no rashes or lesions noted. - Medical Decision Making 02/18/18 08:26 Vital Signs Temp Pulse Resp BP Pulse Ox 98.0 F 84 18 132/69 100 02/18/18 07:33 02/18/18 07:33 02/18/18 07:33 02/18/18 07:33 02/18/18 07:33 Patient with lower back pain. Given social circumstances, patient unable to obtain epidural injection. Patient's severe back pain and be able to ambulate, we'll attempt to control pain. 02/18/18 10:52 CBC, BMP 02/18/18 08:10 02/18/18 08:10 Pt reports feeling much better now. The hospitalist team including Dr. Tyler had spoken with the patient. The patient feels comfortable going home and following up as an outpatient.
[2018-02-18 08:51] LABS: WHITE BLOOD COUNT 10.2 K/mm3 (4.0-10.0)
[2018-02-18 08:52] LABS: BASO % 0.2 % (0-2.0); HEMATOCRIT 41.3 % (35.4-49); HEMOGLOBIN 14.3 GM/dL (11.7-16.9); LYMPH % 10.9 % (8-40); MCH 32.3 pg (25.7-33.7); MCHC 34.7 g/dl (32.0-35.9); MEAN CELL VOLUME 93.2 fl (80-96); MEAN PLT VOLUME 10.2 fl (7.5-11.1); NEUT % 81.9 % (42.8-82.8); PLATELET COUNT 148 K/MM3 (134-434); RBC 4.43 M/mm3 (4.00-5.60); RDW 13.1 % (11.9-15.9)
[2018-02-18 09:02] LABS: ALBUMIN 4.1 g/dl (3.4-5.0); ALK PHOS 71 U/L (45-117); ANION GAP 8 MMOL/L (8-16); BILIRUBIN,TOTAL 0.6 mg/dL (0.2-1); BLOOD UREA NITROGEN 9 mg/dL (7-18); CALCIUM 9.2 mg/dL (8.5-10.1); CHLORIDE 104 mmol/L (98-107); CO2 27 mmol/L (21-32); CREATININE 0.9 mg/dL (0.55-1.3); GLUCOSE,RANDOM 85 mg/dL (74-106); SGOT/AST 24 U/L (15-37); SGPT/ALT 27 U/L (13-61); SODIUM 139 mmol/L (136-145); TOT PROT 7.9 g/dl (6.4-8.2)
[2018-02-18 11:26] VITALS: BP 122/62; PULSE 79
== END 2018-02-18 11:27 | disposition home or self-care (01) ==
LOC: JER 07:24
PROC: 3E033NZ Introduction of Analgesics, Hypnotics, Sedatives into Peripheral Vein, Percutaneous Approach (ICD-10-PCS; principal; 2018-02-18)
PROC: 3E0333Z Introduction of Anti-inflammatory into Peripheral Vein, Percutaneous Approach (ICD-10-PCS; 2018-02-18)
DX: M54.5 Low back pain (principal); M51.26 Other intervertebral disc displacement, lumbar region; I10 Essential (primary) hypertension; J45.909 Unspecified asthma, uncomplicated; Z21 Asymptomatic human immunodeficiency virus [HIV] infection status; F17.210 Nicotine dependence, cigarettes, uncomplicated
CPT/HCPCS: 36415; 80053; 85025; 96374; 96375; 99284-25

== ENCOUNTER 2018-03-03 14:06 | Emergency (ER) | payer OTHER ==
--- NOTE | 2018-03-03 14:39 | PDOC ---
Rapid Medical Evaluation Medical Evaluation: Allergies Allergy/AdvReac Type Severity Reaction Status Date / Time No Known Allergies Allergy Verified 02/18/18 07:33 03/03/18 14:34 Pt presents to the ED for evaluation of his "back sweating". States he had an epidural shot on the . States he needs antibiotics for his back sweating. Denies fevers, chills, bladder/bowel incontinence, saddle anesthesia Exam: Ambulatory with cane. NAD Orders: Nothing Pt to proceed to ED for further evaluation <Kelyl Huynh - Last Filed: 03/03/18 14:34> Medical Evaluation: Allergies Allergy/AdvReac Type Severity Reaction Status Date / Time No Known Allergies Allergy Verified 03/03/18 14:35 Vital Signs Temp Pulse Resp BP Pulse Ox 97.6 F 81 16 137/89 98 03/03/18 14:36 03/03/18 14:36 03/03/18 14:36 03/03/18 14:36 03/03/18 14:36 <Brayan Jimenez - Last Filed: 03/03/18 16:11> Time Seen by Provider: 03/03/18 14:34 Discharge Disposition <Kelly Huynh - Last Filed: 03/03/18 14:34> <Brayan Jimenez - Last Filed: 03/03/18 16:11> - Diagnosis Cough - Discharge Dispostion Disposition: HOME Condition at time of disposition: Good - Prescriptions Prescriptions: Azithromycin [Zithromax Tri-Rohit (3 DAYS) -] 500 mg PO DAILY #3 tablet - Referrals Referrals: Chana Ochoa MD [Staff Physician] - - Patient Instructions Printed Discharge Instructions: DI for Cough -- Adult Additional Instructions: Take azithromycin as prescribed. Follow up with HIV Doctor or Doctor Ochoa. Follow up with the doctor who did your epidural on Tuesday. Return for any concerns
[2018-03-03 14:45] VITALS: BP 137/89; PULSE 81; TEMP 97.6; BMI 28.4
--- NOTE | 2018-03-03 16:01 | PDOC ---
Attending Attestation - HPI HPI: 03/03/18 16:02 CC: Back sweating. HPI: The patient is a 33 year old male, with a significant past medical history of HIV (viral load undetectable), who presents to the emergency department with, back sweating. As per patient, he received an epidural 02/21 (unknown doctor in [place]) and since then he has been experiencing back sweating. Patient notes he is worried that he has an early pneumonia because of his HIV and requests antibiotics. He denies pain, itching, or redness to the epidural site. He denies any recent fevers, headache or dizziness. He denies any recent nausea, vomit, diarrhea or constipation. He denies any recent chest pain or shortness of breath. He denies any recent dysuria, frequency, urgency or hematuria. Allergies: NKDA Social History: Occasional smoker. Neurosurgeon: Dr. Andrea Morrison - Physicial Exam PE: 03/03/18 16:02 Exam Vitals: Triage Vital signs reviewed General Appearance: no acute distress, well nourished well developed, Head: Atraumatic, normocephalic Nose: No nasal congestion Neck: Supple;No Nuchal rigidity Chest Wall: Nontender Cardiac: Regular rate and rhythm, no murmurs, no rubs, no gallops, Lungs: Clear to auscultation bilateral, good air movement bilaterally, Abdomen: Soft, nondistended, normal bowel sounds, nontender to palpation Rectal: Exam deferred Extremities: Full range of motion to all extremities, no cyanosis, clubbing, or edema Skin: Warm and dry, no rashes or lesions, no petechiae Neuro: AOX3; Cranial Nerves 2-12 grossly c intact, Strength intact to all extremities, Sensation intact to all extremities, gait normal Psych: normal mood, normal affect - Medical Decision Making 03/03/18 16:03 33 year old male with history of HIV presents to the ED with back sweating. Plan: Chest x-ray Reassess <Giselle Gomez - Last Filed: 03/03/18 16:02> - Resident Resident Name: Nataliia Fontanez - ED Attending Attestation I have performed the following: I have examined & evaluated the patient, The case was reviewed & discussed with the resident, I agree w/resident's findings & plan, Exceptions are as noted - Medical Decision Making Patient well-appearing no apparent distress very argumentative with staff He was concerned of some sweating to his upper back he denied any fevers chills coughing no pain weakness or numbness to his back that is new or different He did receive an epidural injection last week given his HIV status I recommended blood work to ensure no evidence of infection which patient refused He agreed to a chest x-ray which demonstrates no acute pathology he was adamant to receive a course of antibiotics given his HIV status I agreed to a course of azithromycin only if the patient would follow-up in 1-2 days with his HIV doctor Patient was comfortable with this plan I also advised him to return to the ED for any fever severe worsening low back pain weakness or numbness or for any concerns. Findings, the need for follow-up and strict return instructions discussed with patient. <Brayan Jimenez - Last Filed: 03/03/18 16:17> Attestations - Attestations 03/03/18 16:03 Documentation prepared by Giselle Gomez, acting as medical insurance coding specialist for Brayan Jimeenz MD. <Giselle Gomez - Last Filed: 03/03/18 16:02>
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
== END 2018-03-03 16:14 | disposition home or self-care (01) ==
LOC: JER 14:06 → JERFT 14:06 → JER 16:14
DX: R61 Generalized hyperhidrosis (principal); Z21 Asymptomatic human immunodeficiency virus [HIV] infection status; G89.29 Other chronic pain; F17.210 Nicotine dependence, cigarettes, uncomplicated
CPT/HCPCS: 71046-TC-FY; 99281-25

== ENCOUNTER 2018-08-09 06:50 | Emergency (ER) | payer OTHER ==
[2018-08-09 07:33] VITALS: BP 114/67; PULSE 78; TEMP 98.6; BMI 24.3
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
== END 2018-08-09 08:35 | disposition home or self-care (01) ==
LOC: JER 06:50
DX: F43.9 Reaction to severe stress, unspecified (principal); F17.210 Nicotine dependence, cigarettes, uncomplicated; I10 Essential (primary) hypertension; J45.909 Unspecified asthma, uncomplicated
CPT/HCPCS: 99281-25